=== PATIENT | female | born 1995 | race African-American/Black ===

== ENCOUNTER → 2018-01-25 | Outpatient (CLI) | payer OTHER | END | disposition home or self-care (01) | LOC: US 15:23 | DX: N93.8 Other specified abnormal uterine and vaginal bleeding (principal) | CPT/HCPCS: 76856 ==

== ENCOUNTER 2019-05-07 17:10 | Emergency (ER) | payer OTHER ==
[~2019-05-07] VITALS: Ht 160 cm; Wt 72.1 kg
[~2019-05-07 17:10] MED LIST: BENZ100C PO; CEPH-264 PO; CEPH500T PO; CETI10TA22 PO; IBUP800T19 PO; NITR100C62 PO; ONDA4TAB10 SL; PHEN-318 PO
[2019-05-07] MEDS ORDERED: ONDANSETRON PF 4 MG/2 ML VIAL. IVP ONE (17:30)
[2019-05-07] MEDS ORDERED: IV NORMAL SALINE 1000ML BAG 1,000 ML IV ONE (17:30)
[2019-05-07] MEDS ORDERED: FAMOTIDINE 20 MG/2 ML VIAL IVP ONE (17:30)
[2019-05-07 17:42] LABS: BASO # 0.1 x10^3/uL (0.0-0.2); BASO % 1 % (0-3); EOS # 0.7 x10^3/uL (0.0-0.7); EOS % 6 % (0-3); HEMATOCRIT 39.6 % (36.0-47.0); HEMOGLOBIN 13.2 g/dL (12.0-15.5); LYMPH # 3.6 x10^3/uL (1.0-4.8); LYMPH % 30 % (24-48); MEAN CORPUSCULAR HEMOGLOBIN 27 pg (25-35); MEAN CORPUSCULAR HGB CONC 33 g/dL (31-37); MEAN CORPUSCULAR VOLUME 80 fL (79-100); MONO # 1.5 x10^3/uL (0.0-1.1); MONO % 12 % (0-9); NEUT # 6.2 x10^3/uL (1.8-7.7); NEUT % 51 % (31-73); PLATELET COUNT 277 x10^3/uL (140-400); RED BLOOD COUNT 4.94 x10^6/uL (3.50-5.40); RED CELL DISTRIBUTION WIDTH 15.5 % (11.5-14.5)
[2019-05-07 17:46] LABS: BILIRUBIN,URINE NEGATIVE (NEG); CLARITY,URINE CLEAR; COLOR,URINE YELLOW; NITRITE,URINE NEGATIVE (NEG); PH,URINE 5.5; PROTEIN,URINE NEGATIVE (NEG-TRACE); UROBILINOGEN,URINE 0.2 mg/dL (0.2 mg/dL)
[2019-05-07 17:52] LABS: BACTERIA,URINE FEW /HPF (0-FEW); BARBITURATES NEG (NEG); BENZODIAZEPINES NEG (NEG); CANNABINOIDS NEG (NEG); COCAINE NEG (NEG); METHADONE NEG (NEG); OPIATES NEG (NEG); PHENCYCLIDINE NEG (NEG); RBC,URINE 0 /HPF (0-2); SQUAMOUS EPITHELIAL CELL,UR FEW /LPF
[2019-05-07 17:53] LABS: AMPHETAMINE/METHAMPHETAMINE NEG (NEG); CALCIUM 9.1 mg/dL (8.5-10.1); CREATININE 0.9 mg/dL (0.6-1.0); GFR 95.6; POTASSIUM 3.7 mmol/L (3.5-5.1)
[2019-05-07 17:59] VITALS: BP 126/68
[2019-05-07 17:59] LABS: ALBUMIN 3.8 g/dL (3.4-5.0); ALBUMIN/GLOBULIN RATIO 0.9 (1.0-1.7); TOTAL BILIRUBIN 0.2 mg/dL (0.2-1.0); TOTAL PROTEIN 8.1 g/dL (6.4-8.2)
[2019-05-07] MEDS ORDERED: IOHEXOL 300 MG/ML 100ML VIAL. IV ONE (18:00)
--- NOTE | 2019-05-07 18:39 | RAD ---
Exam: CT abdomen and pelvis with contrast INDICATION: Blood stools TECHNIQUE: Sequential axial images through the abdomen and pelvis obtained following the administration of 75 mL of Omni 300 IV contrast. Sagittal and coronal reformatted images were reconstructed from the axial data and reviewed. Comparisons: None FINDINGS: Heart size is normal. No pericardial effusion. Visualized lung bases are clear. No pleural effusion. Liver, spleen, pancreas, gallbladder and adrenals are unremarkable. Kidneys demonstrate symmetric enhancement. No perinephric inflammation or hydronephrosis. No renal or ureteral calculi are identified. Bladder is partially distended and appears unremarkable. Uterus is not enlarged. No abnormal adnexal mass. Mild bowel wall thickening at the rectum and sigmoid. Otherwise, Large and small bowel are unremarkable. Appendix is normal. No free intra-abdominal air or fluid. Abdominal aorta has a normal course and caliber. Abdominal vasculature is patent. No enlarged intra-abdominal lymph nodes are identified. Several prominent but not enlarged periaortic lymph nodes are identified. No suspicious osseous lesions or acute fractures. IMPRESSION: Mild bowel wall thickening at the rectum and sigmoid which may represent a focal colitis. Exposure: One or more of the following in the visualized dose reduction techniques were utilized for this examination: 1. Automated exposure control 2. Adjustment of the MA and/or KV according to patient size 3. Use of iterative of reconstructive technique Electronically signed by: Reji Thomason MD (05/07/2019 6:36 PM) [facility]
[2019-05-07] MEDS ORDERED: CIPROFLOXACIN 400MG PREMIX 200 ML IV ONE (18:45)
[2019-05-07] MEDS ORDERED: METR500T PO (19:58)
[2019-05-07] MEDS ORDERED: CIPR500T94 PO (19:58)
--- NOTE | 2019-05-07 19:59 | PHYS DOC ---
Past Medical History Past Medical History: Anemia, Asthma Past Surgical History: No Surgical History Alcohol Use: None Drug Use: None Adult General Chief Complaint Chief Complaint: ABDOMINAL PAIN HPI HPI Patient is a 23 year old female who presents to the ED today complaining of lower abdominal pain rated as mild and crampy as well as diarrhea with occasional bloody stools that began on Monday morning after having chipotle on Monday night. Patient denies any fever. Denies any exacerbating or relieving factors. Review of Systems Review of Systems Constitutional: Denies fever or chills [] Eyes: Denies change in visual acuity, redness, or eye pain [] HENT: Denies nasal congestion or sore throat [] Respiratory: Denies cough or shortness of breath [] Cardiovascular: No additional information not addressed in HPI [] GI: Reports abdominal pain, bloody stools, denies nausea and vomiting : Denies dysuria or hematuria [] Musculoskeletal: Denies back pain or joint pain [] Integument: Denies rash or skin lesions [] Neurologic: Denies headache, focal weakness or sensory changes [] All other systems were reviewed and found to be within normal limits, except as documented in this note. Current Medications Current Medications Current Medications Medications (Trade) Dose Ordered Sig/Pretty Start Time Stop Time Status Last Admin Dose Admin Ciprofloxacin/ Dextrose 200 ml @ 200 mls/hr 1X ONCE 05/07/19 18:45 05/07/19 19:44 DC Famotidine (Pepcid Vial) 20 mg 1X ONCE 05/07/19 17:30 05/07/19 17:31 DC 05/07/19 18:05 20 MG Iohexol (Omnipaque 300 Mg/ml) 75 ml 1X ONCE 05/07/19 18:00 05/07/19 18:01 DC 05/07/19 18:17 75 ML Metronidazole 100 ml @ 100 mls/hr 1X ONCE 05/07/19 18:45 05/07/19 19:44 DC Ondansetron HCl (Zofran) 4 mg 1X ONCE 05/07/19 17:30 05/07/19 17:31 DC 05/07/19 18:05 4 MG Sodium Chloride 1,000 ml @ 1,000 mls/hr 1X ONCE 05/07/19 17:30 05/07/19 18:29 DC 05/07/19 18:06 1,000 MLS/HR Allergies Allergies Allergies Coded Allergies Type Severity Reaction Last Updated Verified No Known Drug Allergies 02/02/16 No Physical Exam Physical Exam Constitutional: Well developed, well nourished, no acute distress, non-toxic [place] ear[place]. [] HENT: Normocephalic, atraumatic, bilateral external ears normal, oropharynx moist, no oral exudates, nose normal. [] Eyes: PERRLA, EOMI, conjunctiva normal, no discharge. [] Neck: Normal range of motion, no tenderness, supple, no stridor. [] Cardiovascular:Heart rate regular rhythm, no murmur [] Lungs & Thorax: Bilateral breath sounds clear to auscultation [] Abdomen: Bowel sounds normal, soft, no tenderness, no masses, no pulsatile masses. [] Skin: Warm, dry, no erythema, no rash. [] Back: No tenderness, no CVA tenderness. [] Extremities: No tenderness, no cyanosis, no clubbing, ROM intact, no edema. [] Neurologic: Alert and oriented X 3, normal motor function, normal sensory function, no focal deficits noted. [] Psychologic: Affect normal, judgement normal, mood normal. [] Current Patient Data Vital Signs Vital Signs Date Time Temp Pulse Resp B/P (MAP) Pulse Ox O2 Delivery O2 Flow Rate FiO2 05/07/19 17:22 98.5 69 12 138/76 (96) 95 Room Air 98.5 Lab Values Laboratory Tests Test 05/07/19 17:30 05/07/19 17:34 White Blood Count 12.0 x10^3/uL (4.0-11.0) H Red Blood Count 4.94 x10^6/uL (3.50-5.40) Hemoglobin 13.2 g/dL (12.0-15.5) Hematocrit 39.6 % (36.0-47.0) Mean Corpuscular Volume 80 fL (79-100) Mean Corpuscular Hemoglobin 27 pg (25-35) Mean Corpuscular Hemoglobin Concent 33 g/dL (31-37) Red Cell Distribution Width 15.5 % (11.5-14.5) H Platelet Count 277 x10^3/uL (140-400) Neutrophils (%) (Auto) 51 % (31-73) Lymphocytes (%) (Auto) 30 % (24-48) Monocytes (%) (Auto) 12 % (0-9) H Eosinophils (%) (Auto) 6 % (0-3) H Basophils (%) (Auto) 1 % (0-3) Neutrophils # (Auto) 6.2 x10^3/uL (1.8-7.7) Lymphocytes # (Auto) 3.6 x10^3/uL (1.0-4.8) Monocytes # (Auto) 1.5 x10^3/uL (0.0-1.1) H Eosinophils # (Auto) 0.7 x10^3/uL (0.0-0.7) Basophils # (Auto) 0.1 x10^3/uL (0.0-0.2) Urine Collection Type Void Urine Color Yellow Urine Clarity Clear Urine pH 5.5 Urine Specific [place] 1.025 Urine Protein Negative mg/dL (NEG-TRACE) Urine Glucose (UA) Negative mg/dL (NEG) Urine Ketones (Stick) Negative mg/dL (NEG) Urine Blood Small (NEG) Urine Nitrite Negative (NEG) Urine Bilirubin Negative (NEG) Urine Urobilinogen Dipstick 0.2 mg/dL (0.2 mg/dL) Urine Leukocyte Esterase Small (NEG) Urine RBC 0 /HPF (0-2) Urine WBC 1-4 /HPF (0-4) Urine Squamous Epithelial Cells Few /LPF Urine Bacteria Few /HPF (0-FEW) Urine Mucus Slight /LPF Sodium Level 143 mmol/L (136-145) Potassium Level 3.7 mmol/L (3.5-5.1) Chloride Level 105 mmol/L (98-107) Carbon Dioxide Level 28 mmol/L (21-32) Anion Gap 10 (6-14) Blood Urea Nitrogen 13 mg/dL (7-20) Creatinine 0.9 mg/dL (0.6-1.0) Estimated GFR (Cockcroft-Gault) 95.6 BUN/Creatinine Ratio 14 (6-20) Glucose Level 112 mg/dL (70-99) H Calcium Level 9.1 mg/dL (8.5-10.1) Total Bilirubin 0.2 mg/dL (0.2-1.0) Aspartate Amino Transferase (AST) 17 U/L (15-37) Alanine Aminotransferase (ALT) 34 U/L (14-59) Alkaline Phosphatase 69 U/L (46-116) Total Protein 8.1 g/dL (6.4-8.2) Albumin 3.8 g/dL (3.4-5.0) Albumin/Globulin Ratio 0.9 (1.0-1.7) L Lipase 121 U/L (73-393) Urine Opiates Screen Neg (NEG) Urine Methadone Screen Neg (NEG) Urine Barbiturates Neg (NEG) Urine Phencyclidine Screen Neg (NEG) Urine Amphetamine/Methamphetamine Neg (NEG) Urine Benzodiazepines Screen Neg (NEG) Urine Cocaine Screen Neg (NEG) Urine Cannabinoids Screen Neg (NEG) Ethyl Alcohol Level < 10 mg/dL (0-10) Urine Ethyl Alcohol Neg (NEG) POC Urine HCG, Qualitative Hcg negative (Negative) Laboratory Tests 05/07/19 17:30 Laboratory Tests 05/07/19 17:30 EKG EKG [] Radiology/Procedures Radiology/Procedures []PROCEDURE: CT ABD PELV W/ IV CONTRST ONLY Exam: CT abdomen and pelvis with contrast INDICATION: Blood stools TECHNIQUE: Sequential axial images through the abdomen and pelvis obtained following the administration of 75 mL of Omni 300 IV contrast. Sagittal and coronal reformatted images were reconstructed from the axial data and reviewed. Comparisons: None FINDINGS: Heart size is normal. No pericardial effusion. Visualized lung bases are clear. No pleural effusion. Liver, spleen, pancreas, gallbladder and adrenals are unremarkable. Kidneys demonstrate symmetric enhancement. No perinephric inflammation or hydronephrosis. No renal or ureteral calculi are identified. Bladder is partially distended and appears unremarkable. Uterus is not enlarged. No abnormal adnexal mass. Mild bowel wall thickening at the rectum and sigmoid. Otherwise, Large and small bowel are unremarkable. Appendix is normal. No free intra-abdominal air or fluid. Abdominal aorta has a normal course and caliber. Abdominal vasculature is patent. No enlarged intra-abdominal lymph nodes are identified. Several prominent but not enlarged periaortic lymph nodes are identified. No suspicious osseous lesions or acute fractures. IMPRESSION: Mild bowel wall thickening at the rectum and sigmoid which may represent a focal colitis. Exposure: One or more of the following in the visualized dose reduction techniques were utilized for this examination: 1. Automated exposure control 2. Adjustment of the MA and/or KV according to patient size 3. Use of iterative of reconstructive technique Electronically signed by: Reji Nix MD (05/07/2019 6:36 PM) [facility] DICTATED and SIGNED BY: REJI NIX MD DATE: 05/07/191835 Course & Med Decision Making Course & Med Decision Making Pertinent Labs and Imaging studies reviewed. (See chart for details) This is a 23-year-old female patient presenting to the ED today with lower abdominal pain, diarrhea and bloody stools, symptoms began after eating a chipotle on Monday night. Patient is afebrile. CBC with a WBC of 12.0, hemoglobin and hematocrit are normal. CMP with no acute findings. Urine analysis is noted for small amount of leukocytes. CT of the abdomen and pelvic was noted for colitis. Patient was given IV fluids, was also given Cipro and Flagyl. Feeling better. Discharged to home with the same. Provided GI for follow-up. Dragon Disclaimer Dragon Disclaimer This electronic medical record was generated, in whole or in part, using a voice recognition dictation system. Departure Departure Impression: Primary Impression: Colitis Additional Impression: Bloody stool Disposition: HOME, SELF-CARE Condition: STABLE Referrals: MELI RICHARDSON MD (PCP) follow up next week Patient Instructions: Colitis Additional Instructions: You were evaluated in the emergency room and noted to have colitis. We put you on antibiotics, ensure you complete them. Take Tylenol/Motrin for pain or fever. Push fluids. Follow-up with your doctor or the provided GI doctor in the course of this week. Scripts Metronidazole (FLAGYL) 500 Mg Tablet 500 MG PO TID, #30 TAB Prov: AIDAN LEE DEHORNER 05/07/19 Ciprofloxacin Hcl (CIPRO) 500 Mg Tablet 1 TAB PO BID, #20 TAB Prov: AIDAN LEE DEHORNER 05/07/19 Problem Qualifiers AIDAN LEE APRN May 07, 2019 19:59
== END 2019-05-07 22:10 | disposition home or self-care (01) ==
LOC: ER 17:10
DX: K52.9 Noninfective gastroenteritis and colitis, unspecified (principal); K92.1 Melena; J45.909 Unspecified asthma, uncomplicated
CPT/HCPCS: 36415; 74177; 80053; 80307; 81001; 81025; 83690; 85025; 96361; 96365; 96366; 96368; 96375; 99285; G0480; J0744; J2405; J3490; J7030; Q9967

== ENCOUNTER 2020-10-23 20:31 | Emergency (ER) | payer OTHER ==
[~2020-10-23] VITALS: Ht 157.5 cm; Wt 76.8 kg
[~2020-10-23 20:31] MED LIST changes: -CETI10TA22 PO; +CETI10TA74 PO; +CIPR500T94 PO; +METR500T PO
[2020-10-23 20:40] VITALS: BP 138/83
[2020-10-23 20:55] LABS: BILIRUBIN,URINE NEGATIVE (NEG); CLARITY,URINE CLEAR; COLOR,URINE YELLOW; NITRITE,URINE NEGATIVE (NEG); PROTEIN,URINE NEGATIVE (NEG-TRACE); UROBILINOGEN,URINE 0.2 mg/dL (0.2 mg/dL)
[2020-10-23] MEDS ORDERED: IV NORMAL SALINE 1000ML BAG 1,000 ML IV ONE (21:00)
[2020-10-23] MEDS ORDERED: ONDANSETRON PF 4 MG/2 ML VIAL. IV ONE (21:00)
[2020-10-23 21:01] LABS: BACTERIA,URINE MANY /HPF (0-FEW)
[2020-10-23 21:02] LABS: RBC,URINE 0 /HPF (0-2); WBC,URINE RARE /HPF (0-4)
[2020-10-23 21:36] LABS: BASO # 0.1 x10^3/uL (0.0-0.2); BASO % 1 % (0-3); EOS # 0.7 x10^3/uL (0.0-0.7); EOS % 7 % (0-3); HEMATOCRIT 40.3 % (36.0-47.0); HEMOGLOBIN 13.1 g/dL (12.0-15.5); LYMPH # 3.8 x10^3/uL (1.0-4.8); LYMPH % 39 % (24-48); MEAN CORPUSCULAR HEMOGLOBIN 27 pg (25-35); MEAN CORPUSCULAR HGB CONC 33 g/dL (31-37); MEAN CORPUSCULAR VOLUME 82 fL (79-100); MONO # 1.7 x10^3/uL (0.0-1.1); MONO % 17 % (0-9); NEUT # 3.5 x10^3/uL (1.8-7.7); NEUT % 36 % (31-73); PLATELET COUNT 251 x10^3/uL (140-400); RED CELL DISTRIBUTION WIDTH 14.5 % (11.5-14.5); WHITE BLOOD COUNT 9.8 x10^3/uL (4.0-11.0)
[2020-10-23 21:48] LABS: CALCIUM 8.6 mg/dL (8.5-10.1); CREATININE 1.1 mg/dL (0.6-1.0); GFR 75.2; MAGNESIUM 2.1 mg/dL (1.8-2.4)
--- NOTE | 2020-10-23 22:25 | ED.ADGEN ---
Past Medical History Past Medical History: Anemia, Asthma, Other Additional Past Medical Histor: COLITIS Past Surgical History: No Surgical History Smoking Status: Never Smoker Alcohol Use: None Drug Use: None General Adult EDM: Chief Complaint: ABDOMINAL PAIN HPI: HPI: Patient is a 24 year old female who presents to the emergency department with complaints of generalized abdominal pain with bright red blood-streaked mucousy diarrhea for the last 5 days. Patient reports she had similar symptoms to this a year ago when she was diagnosed with colitis. She denies any fever, vomiting, dysuria, hematuria, increased urinary frequency, myalgias, chest pain, palpitations, dizziness, headache, cough, or shortness of breath. The patient denies any recent ill contacts. She reports that the abdominal pain increases right before and during a bowel movement, she describes the pain as a cramping sensation. At this time she rates pain a 3 out of 10 on the pain scale, when the pain increases it shoots to 8 out of 10. She denies is any history of hemorrhoids or black tarry stools. Review of Systems: Review of Systems: Complete ROS is negative unless otherwise noted in HPI. Current Medications: Current Medications Medications (Trade) Dose Ordered Sig/Pretty Start Time Stop Time Status Last Admin Dose Admin Ondansetron HCl (Zofran) 4 mg 1X ONCE 10/23/20 21:00 10/23/20 21:01 DC Sodium Chloride 1,000 ml @ 1,000 mls/hr 1X ONCE 10/23/20 21:00 10/23/20 21:59 DC 10/23/20 21:30 1,000 MLS/HR Allergies: Allergies: Allergies Coded Allergies Type Severity Reaction Last Updated Verified No Known Drug Allergies 02/02/16 No Physical Exam: PE: See Above Constitutional: Well developed, well nourished, no acute distress, non-toxic appearance. [] HENT: Normocephalic, atraumatic, bilateral external ears normal, nose normal. [] Eyes: PERRLA, EOMI, conjunctiva normal, no discharge. [] Neck: Normal range of motion, no stridor. [] Cardiovascular:Heart rate regular rhythm Lungs & Thorax: Respirations even and unlabored, no retractions, no respiratory distress Abdomen: soft, nontender to palpation, no rebound tenderness, no guarding, no palpable mass, no pulsatile masses Skin: Warm, dry, no erythema, no rash. [] Extremities: No cyanosis, ROM intact, no edema. [] Neurologic: Alert and oriented X 3, normal motor, normal sensory, no focal deficits noted. [] Psychologic: Affect normal, judgement normal, mood normal. [] Current Patient Data: Labs: Laboratory Tests Test 10/23/20 20:36 10/23/20 20:48 10/23/20 21:29 Urine Collection Type Void Urine Color Yellow Urine Clarity Clear Urine pH 6.0 (<5.0-8.0) Urine Specific [place] 1.025 (1.000-1.030) Urine Protein Negative mg/dL (NEG-TRACE) Urine Glucose (UA) Negative mg/dL (NEG) Urine Ketones (Stick) Negative mg/dL (NEG) Urine Blood Negative (NEG) Urine Nitrite Negative (NEG) Urine Bilirubin Negative (NEG) Urine Urobilinogen Dipstick 0.2 mg/dL (0.2 mg/dL) Urine Leukocyte Esterase Negative (NEG) Urine RBC 0 /HPF (0-2) Urine WBC Rare /HPF (0-4) Urine Squamous Epithelial Cells Many /LPF Urine Bacteria Many /HPF (0-FEW) Urine Mucus Mod /LPF POC Urine HCG, Qualitative Hcg negative (Negative) White Blood Count 9.8 x10^3/uL (4.0-11.0) Red Blood Count 4.90 x10^6/uL (3.50-5.40) Hemoglobin 13.1 g/dL (12.0-15.5) Hematocrit 40.3 % (36.0-47.0) Mean Corpuscular Volume 82 fL (79-100) Mean Corpuscular Hemoglobin 27 pg (25-35) Mean Corpuscular Hemoglobin Concent 33 g/dL (31-37) Red Cell Distribution Width 14.5 % (11.5-14.5) Platelet Count 251 x10^3/uL (140-400) Neutrophils (%) (Auto) 36 % (31-73) Lymphocytes (%) (Auto) 39 % (24-48) Monocytes (%) (Auto) 17 % (0-9) H Eosinophils (%) (Auto) 7 % (0-3) H Basophils (%) (Auto) 1 % (0-3) Neutrophils # (Auto) 3.5 x10^3/uL (1.8-7.7) Lymphocytes # (Auto) 3.8 x10^3/uL (1.0-4.8) Monocytes # (Auto) 1.7 x10^3/uL (0.0-1.1) H Eosinophils # (Auto) 0.7 x10^3/uL (0.0-0.7) Basophils # (Auto) 0.1 x10^3/uL (0.0-0.2) Sodium Level 139 mmol/L (136-145) Potassium Level 4.0 mmol/L (3.5-5.1) Chloride Level 102 mmol/L (98-107) Carbon Dioxide Level 29 mmol/L (21-32) Anion Gap 8 (6-14) Blood Urea Nitrogen 14 mg/dL (7-20) Creatinine 1.1 mg/dL (0.6-1.0) H Estimated GFR (Cockcroft-Gault) 75.2 Glucose Level 87 mg/dL (70-99) Calcium Level 8.6 mg/dL (8.5-10.1) Magnesium Level 2.1 mg/dL (1.8-2.4) Laboratory Tests 10/23/20 21:29 Laboratory Tests 10/23/20 21:29 Vital Signs: Vital Signs Date Time Temp Pulse Resp B/P (MAP) Pulse Ox O2 Delivery O2 Flow Rate FiO2 10/23/20 20:40 98.1 75 16 138/83 (101) 100 Room Air 98.1 EKG: EKG: [] Heart Score: C/O Chest Pain: No Risk Factors: Risk Factors: DM, Current or recent (<one month) smoker, HTN, HLP, family history of CAD, obesity. Risk Scores: Score 0 - 3: 2.5% MACE over next 6 weeks - Discharge Home Score 4 - 6: 20.3% MACE over next 6 weeks - Admit for Clinical Observation Score 7 - 10: 72.7% MACE over next 6 weeks - Early Invasive Strategies Radiology/Procedures: Radiology/Procedures: [] Course & Med Decision Making: Course & Med Decision Making Pertinent Labs and Imaging studies reviewed. (See chart for details) 24-year-old female presents emergency department with complaints of bloody mucousy diarrhea for the last 5 days. She reported history of colitis approximately 1 year ago. Patient never established care with vehicle service attendant and has not had any problems since that time. She denies any fever, her vital signs are stable. Lab work included a CBC, and a BMP, CBC was unremarkable, BMP revealed a creatinine of 1.1, otherwise unremarkable patient was given 1 L normal saline in the emergency department. I discussed my low suspicion for an infectious process with the patient, informed her that this is likely a viral diarrhea. I recommended that we obtain a stool specimen for culture and will prescribe antibiotics if needed once the culture results are back. I encouraged the patient to increase clear fluids and follow a diet that is bland. Provided her with Dr. Ansari's information for GI referral and recommended she follow-up with her primary care doctor next week. I encouraged the patient to return to the ER if her abdominal pain worsened, she developed abdominal tenderness, or fever. Patient verbalized an understanding of home care, medications, follow-up, and return to ED instructions and was in agreement with the plan of care. [] Dragon Disclaimer: Dragon Disclaimer: This electronic medical record was generated, in whole or in part, using a voice recognition dictation system. Departure Departure Impression: Primary Impression: Diarrhea Disposition: 01 DC HOME SELF CARE/HOMELESS Condition: STABLE Referrals: PATRICIA ALVAREZ NP (PCP) FELIX ANSARI MD Patient Instructions: Bloody Diarrhea, Diet for Diarrhea, Adult Additional Instructions: Recommend clear fluids for the next 24 hours. Then you may advance to bland foods such as bananas, rice, applesauce, and dry toast. Follow-up with your primary care doctor in the next 1-2 days, your stool culture results are pending. I have also provided the information for vehicle service attendant Dr. Ansari for further evaluation of your ongoing colitis issues. Return to the emergency room if your symptoms worsen or if fever develops. Problem Qualifiers Primary Impression: Diarrhea Diarrhea type: unspecified type Qualified Codes: R19.7 - Diarrhea, unspecified [employer] Oct 23, 2020 22:25
== END 2020-10-23 22:36 | disposition home or self-care (01) ==
LOC: ER 20:31
DX: R10.84 Generalized abdominal pain (principal); R19.7 Diarrhea, unspecified; J45.909 Unspecified asthma, uncomplicated; D64.9 Anemia, unspecified
CPT/HCPCS: 36415; 80048; 81001; 81025; 83735; 85025; 87086; 87205; 87505; 96360; 99283; J7030

== ENCOUNTER 2021-04-05 20:12 | Emergency (ER) | payer OTHER | END 2021-04-05 22:30 | disposition left against medical advice (07) | LOC: ER 20:12 | DX: R31.9 Hematuria, unspecified (principal); Z53.21 Procedure and treatment not carried out due to patient leaving prior to being seen by health care provider ==